=== PATIENT | female | born 2000 ===

== ENCOUNTER 2024-06-04 11:44 | Outpatient (REF) | payer BC, SELFPAY ==
[2024-06-05 12:56] LABS: Chlamydia Result Negative (Negative); GC Result Negative (Negative)
== END 2024-06-04 11:45 | disposition home or self-care (01) ==
LOC: NCHCN 11:44
PROVIDERS: Visit Provider Nurse Practitioner Family
DX: R30.0 Dysuria (principal)
CPT/HCPCS: 87491; 87591